=== PATIENT | female | born 2000 | race Caucasian/White ===

== ENCOUNTER 2025-02-22 10:49 | Outpatient (CLI) | payer SELFPAY ==
[2025-02-22] MEDS ORDERED: Bacteriostatic Normal Saline 30 ML VIAL ONE (12:04)
== END 2025-02-22 10:50 | disposition home or self-care (01) ==
LOC: NM 10:49
PROVIDERS: ATTEND Physician Assistant Medical
DX: R10.11 Right upper quadrant pain (principal); K21.9 Gastro-esophageal reflux disease without esophagitis; R11.0 Nausea; R19.7 Diarrhea, unspecified; K76.0 Fatty (change of) liver, not elsewhere classified; E66.01 Morbid (severe) obesity due to excess calories; Z79.1 Long term (current) use of non-steroidal anti-inflammatories (NSAID); K82.8 Other specified diseases of gallbladder
CPT/HCPCS: 78227; A9537

== ENCOUNTER 2025-04-19 06:21 | Day surgery (SDC) | payer BC, OTHER ==
[2025-04-13 16:16] VITALS: BMI 48.9
[2025-04-19] MEDS ORDERED: Ketamine In 0.9 % NaCl 50 MG/5 ML SYRINGE ONE (07:03)
[2025-04-19] MEDS ORDERED: Lidocaine 1% PF 5 ML VIAL ONE (07:05)
[2025-04-19] MEDS ORDERED: PROPOFOL 200 MG/20 ML VIAL ONE (08:00)
== END 2025-04-19 09:20 | disposition home or self-care (01) ==
LOC: SDC 06:21
PROVIDERS: ATTEND Internal Medicine
PROC: 0DD78ZX Extraction of Stomach, Pylorus, Via Natural or Artificial Opening Endoscopic, Diagnostic (ICD-10-PCS; principal; 2025-04-19)
PROC: 0DD98ZX Extraction of Duodenum, Via Natural or Artificial Opening Endoscopic, Diagnostic (ICD-10-PCS; principal; 2025-04-19)
PROC: 0DDG8ZX Extraction of Left Large Intestine, Via Natural or Artificial Opening Endoscopic, Diagnostic (ICD-10-PCS; principal; 2025-04-19)
DX: K52.9 Noninfective gastroenteritis and colitis, unspecified (principal); K21.00 Gastro-esophageal reflux disease with esophagitis, without bleeding; K29.50 Unspecified chronic gastritis without bleeding; K29.80 Duodenitis without bleeding; K76.0 Fatty (change of) liver, not elsewhere classified; R10.11 Right upper quadrant pain; K25.9 Gastric ulcer, unspecified as acute or chronic, without hemorrhage or perforation; K44.9 Diaphragmatic hernia without obstruction or gangrene; E66.01 Morbid (severe) obesity due to excess calories; Z68.43 Body mass index [BMI] 50.0-59.9, adult; Z91.040 Latex allergy status; Z79.1 Long term (current) use of non-steroidal anti-inflammatories (NSAID); Z79.899 Other long term (current) drug therapy; Z91.018 Allergy to other foods; Z88.8 Allergy status to other drugs, medicaments and biological substances
CPT/HCPCS: 88305; 88342; J2704; J3490